=== PATIENT | male | born 1965 | race African-American/Black ===

== ENCOUNTER 2019-02-04 10:27 | Inpatient (IN) | payer OTHER, MEDICAID ==
[~2019-02-04] VITALS: Ht 185.4 cm; Wt 93.0 kg
[2019-02-04] MEDS ORDERED: FURO-151 PO (10:32)
[2019-02-04] MEDS ORDERED: CARV6.2548 PO (10:33)
[2019-02-04 11:11] LABS: BASOPHILS % 0.5 % (0.0-2.0); EOSINOPHILS % 0.4 % (0.0-5.0); HEMOGLOBIN. 14.4 g/dL (14.0-18.0); LYMPHOCYTES % 24.2 % (20.0-50.0); MEAN CORPUSCULAR HEMOGLOBIN 28.2 pg (28.0-32.0); MEAN CORPUSCULAR VOLUME 86.1 fL (80.0-94.0); MEAN PLATELET VOLUME 9.5 fl (7.4-10.4); MONOCYTES % 6.7 % (2.0-8.0); NEUTROPHILS % 68.2 % (40.0-76.0); PLATELET 171 x1000/uL (130-400); RED CELL DISTRIBUTION WIDTH 14.5 % (11.6-14.6)
[2019-02-04 11:20] LABS: CHLORIDE 106 mEq/L (98-107)
[2019-02-04] MEDS ORDERED: FUROSEMIDE 40MG/4ML VIAL IVP ONE (12:30)
[2019-02-04] MEDS ORDERED: ENALAPRIL 2.5MG/2ML VIAL 2ML IV ONE (12:30)
[2019-02-04] MEDS ORDERED: DIPHENHYDRAMINE 50MG/ML VIAL IV PRN (12:45)
[2019-02-04] MEDS ORDERED: HYDROMORPHONE HCL/PF 2MG/ML CPJ IV PRN (12:45)
[2019-02-04] MEDS ORDERED: GUAIFENESIN 200MG/10ML SUGAR FREE UDC PO PRN (12:45)
[2019-02-04] MEDS ORDERED: MAGNESIUM/ALUMINUM HYDROXIDE/SIMETHICONE 30ML UDC PO PRN (12:45)
[2019-02-04] MEDS ORDERED: LORAZEPAM 2MG/ML CPJ IV PRN (12:45)
[2019-02-04] MEDS ORDERED: NA PHOS,M-B/NA PHOS,DI-BA ENEMA 118ML PR PRN (12:45)
[2019-02-04] MEDS ORDERED: ONDANSETRON HCL 4MG/2ML INJ IV PRN (12:45)
[2019-02-04] MEDS ORDERED: IPRATROPIUM/ALBUTEROL 0.5-3(2.5)MG/3ML NEB INH PRN (12:45)
[2019-02-04] MEDS ORDERED: DOCUSATE SODIUM 100MG CAPSULE PO PRN (12:45)
[2019-02-04] MEDS ORDERED: CLONIDINE 0.1MG TABLET PO PRN (12:45)
[2019-02-04] MEDS ORDERED: HYDROCODONE/ACETAMINOPHEN 5/325MG TABLET PO PRN (12:45)
[2019-02-04 14:34] LABS: CHLORIDE 104 mEq/L (98-107)
[2019-02-04] MEDS: FUROSEMIDE 40MG/4ML VIAL IVP SCH (18:06)
[2019-02-04] MEDS: ENOXAPARIN 40MG/0.4ML SYR SUBCUT SCH (18:06)
[2019-02-04 18:24] VITALS: BP 138/84
[2019-02-04] MEDS ORDERED: LOSA25TA12 MT (18:34)
[2019-02-04 20:00] VITALS: BP 116/83
[2019-02-05] VITALS: BP 113/81
[2019-02-05 04:00] VITALS: BP 102/66
[2019-02-05 06:32] LABS: BASOPHILS % 0.4 % (0.0-2.0); EOSINOPHILS % 0.8 % (0.0-5.0); HEMATOCRIT. 42.7 % (42.0-52.0); HEMOGLOBIN. 14.4 g/dL (14.0-18.0); LYMPHOCYTES % 24.8 % (20.0-50.0); MEAN PLATELET VOLUME 9.9 fl (7.4-10.4); MONOCYTES % 9.1 % (2.0-8.0); NEUTROPHILS % 64.9 % (40.0-76.0); PLATELET 175 x1000/uL (130-400); RED BLOOD CELL COUNT 4.96 mill/uL (4.7-6.1)
[2019-02-05 06:40] LABS: CHLORIDE 101 mEq/L (98-107)
[2019-02-05 06:57] LABS: HDL CHOLESTEROL 34 mg/dL (40-59); T4 FREE 1.56 ng/dL (0.76-1.46)
[2019-02-05 06:58] LABS: LDL CHOLESTEROL 144 mg/dL (5-100)
[2019-02-05 08:00] VITALS: BP 106/72
[2019-02-05] MEDS: LISINOPRIL 2.5MG TABLET PO SCH (08:14)
[2019-02-05] MEDS ORDERED: POTASSIUM CHLORIDE 20MEQ TABLET SR PO NR (09:00)
[2019-02-05] MEDS: ASPIRIN 81MG EC TABLET PO SCH (09:03)
[2019-02-05] MEDS: FUROSEMIDE 40MG/4ML VIAL IVP SCH (09:04)
[2019-02-05 12:00] VITALS: BP 115/79
[2019-02-05 16:00] VITALS: BP 117/88
[2019-02-05] MEDS: ENOXAPARIN 40MG/0.4ML SYR SUBCUT SCH (17:24)
[2019-02-05 20:21] VITALS: BP 122/85
[2019-02-06] VITALS: BP 112/78
[2019-02-06 04:00] VITALS: BP 105/70
[2019-02-06 06:37] VITALS: BP 105/70
[2019-02-06 08:00] VITALS: BP 112/78
[2019-02-06] MEDS: LISINOPRIL 2.5MG TABLET PO SCH (09:45)
[2019-02-06] MEDS: ASPIRIN 81MG EC TABLET PO SCH (09:46)
[2019-02-06] MEDS: FUROSEMIDE 40MG/4ML VIAL IVP SCH (09:46)
[2019-02-06 12:00] VITALS: BP 124/82
[2019-02-06 16:00] VITALS: BP 116/84
== END 2019-02-06 16:08 | disposition home or self-care (01) | DRG 194 ==
LOC: ER 10:39 → EDBEDREQ 12:26 → 8WST 12:41 → EDBEDREQTM 12:49 → EDBEDREQ 12:49 → ENRESERV 15:25
PROVIDERS: ADMIT Internal Medicine; ATTEND Internal Medicine
DX: I11.0 Hypertensive heart disease with heart failure (principal); J96.00 Acute respiratory failure, unspecified whether with hypoxia or hypercapnia; I50.23 Acute on chronic systolic (congestive) heart failure; F17.210 Nicotine dependence, cigarettes, uncomplicated; I25.10 Atherosclerotic heart disease of native coronary artery without angina pectoris; Z91.14 Patient's other noncompliance with medication regimen; Z91.19 Patient's noncompliance with other medical treatment and regimen; Z95.810 Presence of automatic (implantable) cardiac defibrillator; Z79.899 Other long term (current) drug therapy
CPT/HCPCS: 36415; 71045; 80048; 80061; 83880; 84439; 84443; 84484; 93005; 96374; 96375; 99285; J1650; J1940; J3490